=== PATIENT | female | born 1990 | race Caucasian/White ===

== ENCOUNTER 2017-04-18 00:41 | Emergency (ER) | payer OTHER ==
[~2017-04-18] VITALS: Ht 167.6 cm; Wt 68.0 kg
[~2017-04-18 00:41] MED LIST: DIVALPROEX SOD250 M2 PO; EFFEXOR XR75 M1 PO; OLANZAPINE10 M1 PO; OLANZAPINE20 M1 PO; TOPIRAMATE100 M2 PO
[2017-04-18 00:59] VITALS: BP 106/76
[2017-04-18] MEDS ORDERED: CATAPRES0.1 M1 PO (01:30)
[2017-04-18] MEDS ORDERED: ZYPREXA10 M1 PO (01:30)
[2017-04-18] MEDS ORDERED: ZYPREXA20 M1 PO (01:30)
[2017-04-18] MEDS ORDERED: NEURONTIN300 M1 PO (01:30)
[2017-04-18] MEDS ORDERED: EFFEXOR XR150 M1 PO (01:30)
[2017-04-18] MEDS ORDERED: DIVALPROEX SOD250 M2 PO (01:30)
[2017-04-18] MEDS ORDERED: TOPAMAX100 M1 PO (01:30)
[2017-04-18] MEDS ORDERED: LYRICA300 M1 PO (01:30)
--- NOTE | 2017-04-18 01:33 | ED GENERAL ADULT ---
History of Present Illness General Chief Complaint: ETOH/Drug Related Complaint Stated Complaint: NOT TAKEN MEDS HX PTSD,ANXIETY Source: patient, family, old records Exam Limitations: no limitations Vital Signs & Intake/Output Vital Signs & Intake/Output Vital Signs Date Time Temp Pulse Resp B/P B/P Pulse O2 O2 Flow FiO2 Mean Ox Delivery Rate 04/18 0059 95.2 100 20 106/76 95 Room Air Allergies Coded Allergies: lithium (Mild, acne all over 03/21/17) lurasidone (From [facility]) (Mild, lactaids 03/21/17) Reconcile Medications Clonidine HCl (Catapres) 0.1 MG TABLET 1 TAB PO Q6P PRN WITHDRAWAL Divalproex Sodium 250 MG TABLET.DR 1 TAB PO TID ANXIETY Divalproex Sodium 250 MG TABLET.DR 1 TAB PO TID psych Gabapentin (Neurontin) 300 MG CAPSULE 1 CAP PO TID ANXIETY Olanzapine 10 MG TABLET 1 TAB PO QPM BIPOLAR Olanzapine (Zyprexa) 20 MG TABLET 1 TAB PO QPM ANXIETY Olanzapine (Zyprexa) 10 MG TABLET 1 TAB PO QPM ANXIETY Olanzapine 10 MG TABLET 1 TAB PO DAILY psych Olanzapine 20 MG TABLET 1 TAB PO DAILY psych Pregabalin (Lyrica) 300 MG CAPSULE 1 CAP PO BID NEUROPATHY Topiramate (Topamax) 100 MG TABLET 1 TAB PO BID ANXIETY Topiramate 100 MG TABLET 1 TAB PO BID psych Venlafaxine HCl (Effexor XR) 75 MG CAP.ER.24H 1 CAP PO DAILY BIPOLAR Venlafaxine HCl (Effexor XR) 150 MG CAP.ER.24H 1 CAP PO DAILY DEPRESSION Triage Note: 27YO FEMALE TO TRIAGE W/CO FEELING "WITHDRAWAL SX FROM NOT TAKING LYRICA,GABAPENTIN,AND OTHER MEDS. STATES SHE HAS BEEN VOMITING X 4 D. ALSO STATES SHE "DOES NOT HAVE APPT W/PSYCH MD UNTIL 05/11" Triage Nurses Notes Reviewed? yes HPI: She is in the process of changing doctors and does not have an appointment until the end of April. Patient ran out of. Patient feels that she is going through withdrawal. Patient had Clonidine can help with withdrawal symptoms. Patient denies any suicidal or homicidal ideations. Patient denies any hallucinations. Past History Travel History Traveled to [place] past 21 day No Medical History Any Pertinent Medical History? see below for history Neurological: NONE EENT: NONE Cardiovascular: NONE Respiratory: NONE Gastrointestinal: NONE Hepatic: NONE Renal: NONE Musculoskeletal: NONE Psychiatric: bipolar disease Endocrine: NONE Blood Disorders: NONE Cancer(s): NONE Surgical History Surgical History: non-contributory Psychosocial History What is your primary language American Tobacco Use: Current Daily Use Daily Tobacco Use Amount/Type: => 5 Cigarettes daily ETOH Use: denies use Illicit Drug Use: denies illicit drug use Family History Hx Contributory? No Review of Systems Review of Systems Constitutional: Reports: see HPI, chills. EENTM: Reports: no symptoms. Respiratory: Reports: no symptoms. Cardiovascular: Reports: no symptoms. GI: Reports: see HPI, diarrhea. Genitourinary: Reports: no symptoms. Musculoskeletal: Reports: see HPI, muscle pain. Skin: Reports: no symptoms. Neurological/Psychological: Reports: no symptoms. Hematologic/Endocrine: Reports: no symptoms. Immunologic/Allergic: Reports: no symptoms. All Other Systems: Reviewed and Negative Physical Exam Physical Exam General Appearance: well developed/nourished, alert, awake Head: atraumatic, normal appearance Eyes: Bilateral: PERRL, EOMI. Ears, Nose, Throat: normal pharynx, normal ENT inspection, hearing grossly normal Neck: normal inspection, supple, full range of motion Respiratory: normal breath sounds, chest non-tender, no respiratory distress, lungs clear Cardiovascular: regular rate/rhythm, normal peripheral pulses Gastrointestinal: normal bowel sounds, soft, non-tender, no organomegaly Neurologic/Psych: no motor/sensory deficits, awake, alert, oriented x 3, normal gait, normal mood/affect Core Measures ACS in differential dx? No CVA/TIA Diagnosis: No Sepsis Present: No Sepsis Focused Exam Completed? No Progress Differential Diagnoses I considered the following diagnoses in my evaluation of the patient: [ Medication refill] Plan of Care: Patient feeling a 2 week supply Initial ED EKG: none Departure Departure Disposition: HOME OR SELF CARE Condition: Stable Clinical Impression Primary Impression: Medication refill Referrals: Patient Has No Primary Care Dr (PCP/Family) Additional Instructions: you will need to return in 2 weeks for another prescription. return sooner for any concerns Departure Forms: Customer Survey General Discharge Information Prescriptions: Current Visit Scripts Clonidine HCl (Catapres) 1 TAB PO Q6P PRN WITHDRAWAL #30 TAB Pregabalin (Lyrica) 1 CAP PO BID #28 CAP Gabapentin (Neurontin) 1 CAP PO TID #42 CAP Venlafaxine HCl (Effexor XR) 1 CAP PO DAILY #14 CAP Divalproex Sodium 1 TAB PO TID #42 TAB Topiramate (Topamax) 1 TAB PO BID #28 TAB Olanzapine (Zyprexa) 1 TAB PO QPM #14 TAB Olanzapine (Zyprexa) 1 TAB PO QPM #14 TAB Critical Care Note Critical Care Note Critical Care Time: non-applicable
== END 2017-04-18 01:40 ==
LOC: ERH 00:41
DX: Z76.0 Encounter for issue of repeat prescription (principal)
CPT/HCPCS: 99281